=== PATIENT | female | born 1980 | race Caucasian/White ===

== ENCOUNTER 2020-11-27 13:12 | Emergency (ER) | payer MEDICARE ==
[~2020-11-27] VITALS: Ht 175.3 cm; Wt 125.0 kg
[~2020-11-27 13:12] MED LIST: ASPI325T8 PO; CLONAZEPAM1 MG PO; ENOX40DI SQ; GABA300C18 PO; LACT1CAP19 PO; LEVO500T8 PO; METH-562 PO; MIRT-7 PO; MULT-496 PO; Nicotine 21MG TD; OXYC5TAB2 PO; QUET100T4 PO; QUET25TA5 PO; SULF1TAB24 PO
--- NOTE | 2020-11-27 13:48 | PHYS DOC ---
Past Medical History Additional Past Medical Histor: ANXIETY (EDA LIN APRN) Past Surgical History: Other Additional Past Surgical Histo: BILAT TIB/FIB ORIF/R UPPER ARM/ELBOW ORIF (EDA LIN APRN) Smoking Status: Current Every Day Smoker (EDA LIN APRN) General Adult HPI: HPI: Patient is a 39 year old female presents emergency department via EMS transport from [facility] [place] who staff are concerned patient is ingesting methamphetamines while in their facility. Patient was sent here by the rehab center for urine drug screen evaluation. Patient has no chief complaint, states she is at the rehab center for her right-sided tib-fib fracture, has been taking her pain medications as directed which are oxycodone 5 mg tablets she takes 2 tablets every 6 hours as needed for acute pain. Place patient also takes a clonazepam 1 mg tablet 3 times a day. Patient denies any illicit drug use, denies drinking alcohol or smoking cigarettes since being in the rehab center. Patient denies any other physical complaints or physical concerns. Patient s tates she does not need to be here however will give any sample she is asked to give to prove she is not ingesting methamphetamines or any other illicit drugs. (EDA LIN APRN) Review of Systems: Review of Systems: 14 body systems of review of systems have been reviewed. See HPI for pertinent positives and negative responses, otherwise all other systems are negative, nonpertinent or noncontributory. Constitutional: Negative except as outlined in HPI above. Skin: Negative except as outlined in HPI above. Eyes: Negative except as outlined in HPI above. HENT: Negative except as outlined in HPI above. Respiratory: Negative except as outlined in HPI above. Cardiovascular: Negative except as outlined in HPI above. GI: Negative except as outlined in HPI above. : Negative except as outlined in HPI above. Musculoskeletal: Negative except as outlined in HPI above. Integument: Negative except as outlined in HPI above. Neurologic: Negative except as outlined in HPI above. Endocrine: Negative except as outlined in HPI above. Lymphatic: Negative except as outlined in HPI above. Psychiatric: Negative except as outlined in HPI above. (EDA LIN APRN) Heart Score: C/O Chest Pain: No Risk Factors: Risk Factors: DM, Current or recent (<one month) smoker, HTN, HLP, family history of CAD, obesity. Risk Scores: Score 0 - 3: 2.5% MACE over next 6 weeks - Discharge Home Score 4 - 6: 20.3% MACE over next 6 weeks - Admit for Clinical Observation Score 7 - 10: 72.7% MACE over next 6 weeks - Early Invasive Strategies (EDA LIN APRN) Allergies: Allergies: Allergies Coded Allergies Type Severity Reaction Last Updated Verified Penicillins Allergy Intermediate 11/14/20 Yes (EDA LIN APRN) Physical Exam: PE: Constitutional: Well developed, well nourished, no acute distress, non-toxic appearance. 39-year-old female in no apparent distress. HENT: Normocephalic, atraumatic. Eyes: Conjunctiva normal, no discharge. Pupils 2 mm bilaterally, equal and reactive to light. Neck: Normal range of motion, no stridor. Cardiovascular: No cyanosis appreciated, distal cap refill less than 2 seconds. Lungs & Thorax: Patient is in no respiratory distress, no audible adventitious lung sounds appreciated. Abdomen: Nontender, no abnormalities noted. Skin: Warm, dry, no erythema, no rash. Back: No tenderness, no deformities. Extremities: No tenderness, no cyanosis, no clubbing, ROM intact, no edema. Except for right lower extremity, patient does have pain from diagnosed right tib-fib fracture and is having rehab at rehab center related to fracture. Neurologic: Alert and oriented X 3, normal motor function, normal sensory f unction, no focal deficits noted. Psychologic: Affect normal, judgement normal, mood normal. (EDA LIN APRN) EKG: EKG: [] (EDA LIN APRN) Radiology/Procedures: Radiology/Procedures: [] (EDA LIN APRN) Course & Med Decision Making: Course & Med Decision Making Pertinent Labs and Imaging studies reviewed. (See chart for details) 39-year-old female, vital signs reviewed, presents to the emergency department via EMS for urine drug screen related to accusation by [facility] [place] where the patient currently resides for rehabilitation related to right tib-fib fracture. Patient adamantly denies any illicit drug use or any other medication use other than her prescribed medications. Patient's physical presentation is consistent with patient taking both clonazepam and opiate such as OxyContin for pain. Patient is willing to give urine sample for drug screening purposes. Urine drug screen ordered. The patient's urine drug screen positive for opiates, no other illicit drugs. Discussed findings with patient. Upon reevaluation of the patient, patient remains alert and oriented x3, states she is ready to go back home. Patient continues to deny any physical complaints or physical concerns other than the pain she does have in her right tib-fib from her fracture. Patient denies any new onset or changes from her normal aches and pains from her injury in which she is being rehabilitated for. Discussed with patient will send back to rehab center for ongoing physical therapy and rehabilitation. Patient is amendable to this plan. Discussed with the patient all findings and diagnostic testing as well as the need to follow-up with their primary care provider for further evaluation and treatment or return to the ED if any new or worsening symptoms. Strict return precautions were also discussed at length, the patient voiced understanding and agreement with the discharge planning. The patient was nontoxic in appearance, in no apparent distress, and hemodynamically stable at the time of disposition. (EDA LIN APRN) Dragon Disclaimer: Dragon Disclaimer: This electronic medical record was generated, in whole or in part, using a voice recognition dictation system. (EDA LIN APRN) Departure Departure Impression: Primary Impression: Positive urine drug screen Additional Impression: Encounter for drug screening Disposition: HOME / SELF CARE / HOMELESS Condition: GOOD Referrals: DONNA CHACON MD, MPH (PCP) Additional Instructions: You were seen here in the emergency department for evaluation of illicit drug use. You did provide a urine sample for a urine drug screen. As we discussed at length, your urine drug screen showed only the medications indicated in your pain medication regimen. There were no other illicit drugs discovered in your urine drug screen. Please continue your physical rehabilitation at the rehab center as directed by your physician. Thank you for visiting our Emergency Department. It was a pleasure taking care of you today in the emergency department and we appreciate you trusting us with your care. If any additional problems come up don't hesitate to return to visit us. Please follow up with your primary care provider so they can plan additional care if needed and know about the problem that you had. If symptoms worsen come back to the Emergency Department. Any concerning symptoms that start such as chest pain, shortness of air, weakness or numbness on one side of the body, running high fevers or any other concerning symptoms return to the ER. EMERGENCY DEPARTMENT GENERAL DISCHARGE INSTRUCTIONS Thank you for coming to [facility] Emergency Department (ED) today and trusting us with you care. We trust that you had a positive experience in our Emergency Department. If you wish to speak to the department management, you may call the Director at [phone]. YOUR FOLLOW UP INSTRUCTIONS ARE FOLLOWS: 1. Do you have a private Doctor? If you do not have a private doctor, please ask for a resource list of physicians or clinics that may be able to assist you with follow up care. 2. The Emergency Physicain has interpreted your x-rays. The X-Ray specialist will also review them. If there is a change in the findings, you will be notified in 48 hours when at all possible. 3. A lab test or culture has been done, your results will be reviewed and you will be notified if you need a change in treatment. ADDITIONAL INSTRUCTIONS AND INFORMATION: 1. Your care today has been supervised by a physician who is specially trained in emergency care. Many problems require more than one evaluation for a complete diagnosis and treatment. We recommend that you schedule your follow up appointment as recommended to ensure complete treatment of you illness or injury. If you are unable to obtain follow up care and continue to have a problem, or if your condition worsens, we recommend that you return to the ED. 2. We are not able to safely determine your condition over the phone nor are we able to give sound medical advice over the phone. For these safety reasons, if you call for medical advice we will ask you to come to the ED for further evaluation. 3. If you have any questions regarding these discharge instructions please call the ED at [phone]. SAFETY INFORMATION: In the interest of safety, wellness, and injury prevention; we encourage you to wear your sealbelt, if you smoke; quite smoking, and we encourage family to use a protective helmet for bicycling and other sporting events that present an increased risk for head injury. IF YOUR SYMPTOMS WORSEN OR NEW SYMPTOMS DEVELOP, OR YOU HAVE CONCERNS ABOUT YOUR CONDITION; OR IF YOUR CONDITION WORSENS WHILE YOU ARE WAITING FOR YOUR FOLLOW UP APPOINTMENT; EITHER CONTACT YOUR PRIMARY CARE DOCTOR, THE PHYSICIAN WHOSE NAME AND NUMBER YOU WERE GIVEN, OR RETURN TO THE ED IMMEDIATELY. Attending Signature I have participated in the care of this patient and I have reviewed and agree with all pertinent clinical information above including history, exam, and recommendations. (SOPHIA BROWN DO) EDA LIN APRN Nov 27, 2020 13:48 SOPHIA BROWN DO Nov 27, 2020 17:30
[2020-11-27 13:52] VITALS: BP 93/47
[2020-11-27 14:24] LABS: BILIRUBIN,URINE NEGATIVE (NEG); CLARITY,URINE CLEAR; COLOR,URINE YELLOW; NITRITE,URINE NEGATIVE (NEG); PROTEIN,URINE NEGATIVE (NEG-TRACE); UROBILINOGEN,URINE 0.2 mg/dL (0.2 mg/dL)
[2020-11-27 14:29] LABS: BACTERIA,URINE 0 /HPF (0-FEW); WBC,URINE OCC /HPF (0-4)
[2020-11-27 14:30] LABS: BASO # 0.1 x10^3/uL (0.0-0.2); BASO % 1 % (0-3); EOS # 0.2 x10^3/uL (0.0-0.7); EOS % 2 % (0-3); HEMATOCRIT 37.7 % (36.0-47.0); HEMOGLOBIN 12.2 g/dL (12.0-15.5); LYMPH # 1.4 x10^3/uL (1.0-4.8); LYMPH % 14 % (24-48); MEAN CORPUSCULAR HEMOGLOBIN 28 pg (25-35); MEAN CORPUSCULAR HGB CONC 32 g/dL (31-37); MEAN CORPUSCULAR VOLUME 86 fL (79-100); MONO # 0.4 x10^3/uL (0.0-1.1); MONO % 4 % (0-9); NEUT # 7.9 x10^3/uL (1.8-7.7); NEUT % 79 % (31-73); PLATELET COUNT 339 x10^3/uL (140-400); RED CELL DISTRIBUTION WIDTH 21.5 % (11.5-14.5); WHITE BLOOD COUNT 10.1 x10^3/uL (4.0-11.0)
[2020-11-27 14:30] LABS: BARBITURATES NEG (NEG); BENZODIAZEPINES NEG (NEG); CANNABINOIDS NEG (NEG); COCAINE NEG (NEG); METHADONE NEG (NEG); OPIATES POS (NEG); PHENCYCLIDINE NEG (NEG); RBC,URINE 0 /HPF (0-2)
[2020-11-27 14:30] LABS: CALCIUM 9.4 mg/dL (8.5-10.1); CREATININE 0.8 mg/dL (0.6-1.0); POTASSIUM 3.8 mmol/L (3.5-5.1)
[2020-11-27 14:31] LABS: AMPHETAMINE/METHAMPHETAMINE NEG (NEG)
[2020-11-27 14:48] LABS: ANISOCYTOSIS MOD; PLT ESTIMATE ADEQUATE (ADEQUATE)
== END 2020-11-27 20:20 | disposition home or self-care (01) ==
LOC: ER 13:12
DX: F15.10 Other stimulant abuse, uncomplicated (principal); F17.200 Nicotine dependence, unspecified, uncomplicated; Z88.0 Allergy status to penicillin
CPT/HCPCS: 36415; 80048; 80307; 81001; 85025; 99285-25